=== PATIENT | male | born 1985 | race Caucasian/White ===

== ENCOUNTER → 2021-02-21 | Outpatient (CLI) | payer OTHER ==
[~2021-02-21] VITALS: Ht 190.5 cm; Wt 111.1 kg
[~2021-02-21] MED LIST: COZAAR 50 MG TA50 M1 PO; DULOXETINE HCL60 MG PO; FLUOXETINE HCL40 MG PO; METHOCARBAMOL500 M2 PO; MOBIC15 MG PO; PLAQUENIL200 MG PO; PREDNISONE 10 M10 MG PO; SINGULAIR 10 MG10 MG PO
[2021-02-21 10:07] VITALS: BP 151/90
--- NOTE | 2021-02-21 10:24 | NUR ---
[facility] Assessment: 1. History of Osteoarthritis: Not Applicable History of Rheumatoid Arthritis: Not Applicable 2. Height: 6 ft. 3 in. 190.5 cm. Weight: 245.0 lb. oz. 111.132 kg. Patient's BMI: 30.6 3. Vital Signs: BP: 151/90 Pulse: 87 Resp: 16 Temp: 02 Sat: 97 ECG Mon: 4. Pain Intensity: 7 5. Fall Risk: Dizziness: N Needs help standing or walking: N Fallen in the last 3 months: N Fall risk comments: 6. Patient on Blood Thinner: None 7. History of Hypertension: Y 8. Opioid Therapy greater than 6 weeks: Opiate Contract Signed: 9. Risk Assessment Tool Provided: 0 LOW RISK 10. Functional Assessment Tool: 39/ 11. Recreational Drug Use: Never Drug Type: Tobacco Use: Never Smoker Tobacco Type: Amount or Packs/day: How Many Years: Alcohol Use: Yes Frequency: Monthly Quant: 2
== END ==
LOC: PAIN 06:57
PROVIDERS: ATTEND Anesthesiology Pain Medicine
DX: I10 Essential (primary) hypertension (principal); M54.50 Low back pain, unspecified; F41.9 Anxiety disorder, unspecified; Z79.899 Other long term (current) drug therapy; Z88.8 Allergy status to other drugs, medicaments and biological substances